=== PATIENT | female | born 1995 ===

== ENCOUNTER 2022-04-13 07:31 | Day surgery (SDC) | payer OTHER ==
[~2022-04-13] VITALS: Ht 188 cm; Wt 113.4 kg
[2022-04-13] MEDS ORDERED: PRILOSEC 20MG20 MG PO (08:24)
[2022-04-13] MEDS ORDERED: LORYNA 3 MG-0.01 TAB PO (08:25)
[2022-04-13] MEDS ORDERED: VITAMINC1000TA (08:26)
[2022-04-13] MEDS ORDERED: PROBIOTIC PEAR1 EAC3 PO (08:26)
[2022-04-13] MEDS ORDERED: ONE-A-DAY WOMEN1 TAB (08:28)
[2022-04-13] MEDS ORDERED: CLARITIN 1010 MG/TAB PO (08:29)
[2022-04-13] MEDS ORDERED: CEPHALEXIN500 M1 PO (08:31)
[2022-04-13] MEDS ORDERED: ULTRAM 50MG TAB50 MG PO (08:31)
[2022-04-13] MEDS ORDERED: NORCO 325 MG-51 TAB PO (08:31)
[2022-04-13] MEDS ORDERED: ASPIRIN 81M81 MG/TA2 PO (08:31)
[2022-04-13 08:33] VITALS: BP 116/62; PULSE 79; TEMP 97.8
[2022-04-13 11:30] VITALS: BP 122/73; PULSE 89; TEMP 98.4
--- NOTE | 2022-04-13 11:30 | NUR ---
1130 PATIENT RETURNS TO ROOM 5 VIA CART. PATIENT IS ALERT AND ORIENTED. RESPIRATIONS EVEN AND UNLABORED. PATIENT STATES HER PAIN IS A 3/10, SHE RECIEVED PRN PAIN MEDS IN PACU AT 1113. VITAL SIGNS OBTAINED. DRESSING IN PLACE TO LEFT KNEE, CDI. KNEE IMMOBLIZIER TO LEFT KNEE. PATIENT DOES NOT WANT ANYTHING TO EAT OR DRINK AT THIS TIME. 1207 PHYSICAL THERAPY HERE TO WORK WITH PATIENT AND FIT HER FOR CRUTCHES. PATIENT AMBULATES OUT IN TO HALLWAY WITH PHYSICAL THERAPY AND CRUTCHES. PATIENT STATES THAT IT WENT WELL BUT STARTED TO FEEL SICK AND HOT WHEN SHE SAT BACK DOWN IN BED. DOES NOT WANT ANY MEDICATIONS AT THIS TIME. PATIENT ASKED FOR MORE WATER AND STATES THAT SHE IS STARTING TO FEEL BETTER. 1240 DC IV FROM LEFT FOREARM WITH NO DIFFICULTIES. 1245 THIS NURSE WENT OVER DISCHARGE INSTRUCTIONS WITH PATIENT. PATIENT VERBALIZED UNDERSTANDING. 1250 THIS NURSE ASSISTED PATIENT IN GETTING DRESSES IN HER CLOTHES. 1315 PATIENT ASKED FOR ASSISTANCE TO GO THE RESTROOM. PATIENT STATES THAT HER LEFT FOOT IS STILL PRETTY NUMB. THIS NURSE PROVIDED EDUCATION ABOUT THE BLOCK THAT SHE RECIEVED. 1330 PATIENT DISCHARGES FROM UNIT VIA WHEELCHAIR.
[2022-04-13 11:45] VITALS: BP 119/71; PULSE 95
[2022-04-13 12:00] VITALS: BP 119/73; PULSE 84
[2022-04-13 12:49] VITALS: BP 125/69; PULSE 89; TEMP 99.1
== END 2022-04-13 13:30 | disposition home or self-care (01) ==
LOC: SDCO 07:31
DX: S83.512A Sprain of anterior cruciate ligament of left knee, initial encounter (principal); S83.282A Other tear of lateral meniscus, current injury, left knee, initial encounter; X50.9XXA Other and unspecified overexertion or strenuous movements or postures, initial encounter; Y93.89 Activity, other specified; Y92.9 Unspecified place or not applicable; K21.9 Gastro-esophageal reflux disease without esophagitis; Z79.899 Other long term (current) drug therapy
CPT/HCPCS: C1713; J1100; J1885; J2250; J2405; J2704; J2795; J3010; J7120; L1830